=== PATIENT | female | born 1945 | race Caucasian/White ===

== ENCOUNTER 2022-04-24 14:00 | Outpatient (RCR) | payer MEDICARE, BC, SELFPAY | END 2022-07-24 12:29 | disposition home or self-care (01) | PROVIDERS: Visit Provider Orthopaedic Surgery | DX: M25.552 Pain in left hip (principal); R26.9 Unspecified abnormalities of gait and mobility; Z51.89 Encounter for other specified aftercare | CPT/HCPCS: 97110 ==

== ENCOUNTER 2022-11-28 10:45 | Outpatient (RCR) | payer MEDICARE, BC, SELFPAY | END 2023-04-12 23:59 | disposition home or self-care (01) | PROVIDERS: PCP Physician Assistant Medical; Visit Provider Orthopaedic Surgery | DX: M76.52 Patellar tendinitis, left knee (principal); Z51.89 Encounter for other specified aftercare | CPT/HCPCS: 97110; 97162 ==

== ENCOUNTER 2022-12-25 11:28 | Emergency (ER) | payer MEDICARE, BC, SELFPAY ==
[2022-12-25] VITALS (12 sets, daily range): BP systolic 91–131; BP diastolic 55–95; PULSE 48–53; RESP 16; TEMP 36.3; O2SAT 95–99
--- NOTE | 2022-12-25 12:06 | CRLHL7_ITS ---
For Patients: As a result of the Cures Act, medical imaging exams and procedure reports are released immediately into your electronic medical record. You may view this report before your referring provider. If you have questions, please contact your health care provider. Indication: Shortness of breath and chest pain Technique: Chest 2 views Comparison: Chest x-ray 06/24/2021 Findings/Impression: Cardiovascular and mediastinum: Normal heart size with mild aortic tortuosity. Lungs and pleural spaces: No pleural effusion or pneumothorax. No focal pulmonary consolidation. Bones and soft tissues: Old-appearing lower thoracic compression fracture. Dictated by Huan Magdaleno MD @ 12/25/2022 1:41:23 PM (Electronically Signed)
[2022-12-25 12:38] LABS: Basophils Absolute Auto 0.05 K/uL (0.00-0.30); Basophils Percent Auto 0.9 % (0.0-3.0); Eosinophils Absolute Auto 0.25 K/uL (0.00-0.50); Eosinophils Percent Auto 4.6 % (0.0-7.0); Hematocrit 42.4 % (33.0-51.0); Lymphocytes Absolute Auto 1.12 K/uL (0.90-2.90); Lymphocytes Percent Auto 20.8 % (20-44); Mean Corpuscular HGB Conc 33 gm/dL (32-36); Mean Corpuscular Hemoglobin 30 pg (26-34); Mean Corpuscular Volume 91 fL (80-100); Monocytes Percent Auto 11.7 % (0.0-11.0); Neutrophils Absolute Auto 3.34 K/uL (1.7-7.0); Platelet Count* 250 K/uL (140-440); Red Blood Count 4.67 m/uL (4.00-5.20); White Blood Count* 5.39 K/uL (4.50-11.00)
[2022-12-25 12:40] LABS: Slide Review Reflex No
--- NOTE | 2022-12-25 12:45 | ED.SOB ---
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 Denies any leg swelling, pleuritic pain, coughing, fevers chills, leg swelling, previous history of PE or DVT she has no personal history of any cardiac issues. She called the [facility] today, and they directed her to the ER. She thought this was possibly overkill. The shortness of breath is whenever she takes a deep breath in she notes a little bit of a catch, she denies an acid taste in the back of her throat, she does remember having this before. Treatment prior to arrival: none Related Data Home oxygen amount: none Home Medications Medication Instructions Recorded Confirmed atenolol 25 mg tablet 25 mg PO BID 12/25/22 12/25/22 atorvastatin 20 mg tablet 20 mg PO DAILY 12/25/22 12/25/22 celecoxib 200 mg capsule 200 mg PO DAILY 12/25/22 12/25/22 omeprazole 40 mg capsule,delayed 40 mg PO DAILY 12/25/22 12/25/22 release Allergies Allergy/AdvReac Type Severity Reaction Status Date / Time Penicillins Allergy Mild Verified 12/25/22 11:49 Review of Systems Status of ROS: Reports: 10 or more systems reviewed and unremarkable except as noted in History and below PFSH PFS Social History Smoking Status: Former smoker How often do you have a drink containing alcohol: 2-3 times a week AUDIT-C Alcohol total score: 3 Non-prescribed substance use: denies use Exam Narrative: Exam Narrative: Patient is seen in room 3 in no apparent distress she is pleasant and alert, speaking to me normally her pupils are equal round reactive to light, there is no scleral icterus redness, TMs are normal, her oropharynx is normal, neck is good carotid upstrokes bilaterally with absence of bruits, JVP is flat, chest has excellent air entry bilaterally, with no wheezing crackles noted there are no signs of respiratory distress, CV exam shows S1-S2 are normal there is no S3-S4 clicks murmurs or gallops, no palpable pain across the chest, abdomen is soft and slightly obese, there is no guarding, no organomegaly, no tenderness, bowel sounds are normal, her lower extremity show negative Homans sign bilaterally, no edema, normal pulses, normal sensation, neurologically intact moving upper and lower extremities normal, with normal power graded 5/5, skin reveals no rashes and she has normal pulses. Const: Vital Signs, click to edit/add: Vital Signs - 24 hr 12/25/22 11:41 12/25/22 12:36 12/25/22 13:00 Temperature 97.4 F L Pulse Rate 51 L 49 L Pulse Rate [Right Pulse Oximeter] 53 L Respiratory Rate 16 Blood Pressure Blood Pressure [Le ft Upper Arm] 125/74 Pulse Oximetry 97 97 96 Oxygen Delivery Me thod Room Air 12/25/22 13:03 12/25/22 13:07 12/25/22 13:30 Temperature Pulse Rate 50 L 48 L Pulse Rate [Right Pulse Oximeter] Respiratory Rate Blood Pressure 91/55 L Blood Pressure [Le ft Upper Arm] Pulse Oximetry 98 97 [facility] 13:31 12/25/22 14:00 12/25/22 14:01 Temperature Pulse Rate 49 L 50 L 53 L Pulse Rate [Right Pulse Oximeter] Respiratory Rate Blood Pressure 118/76 121/73 Blood Pressure [Le ft Upper Arm] Pulse Oximetry 95 99 99 Oxygen Delivery Ar thod 12/25/22 14:30 12/25/22 14:31 12/25/22 15:00 Temperature Pulse Rate 48 L 51 L 49 L Pulse Rate [Right Pulse Oximeter] Respiratory Rate Blood Pressure 131/95 H Blood Pressure [Le ft Upper Arm] Pulse Oximetry 97 98 98 Oxygen Delivery Me thod Documenting provider has reviewed patient's vital signs: yes Course Course Hospital Course: Sources laboratory work was normal, her EKG is reassuring, chest x-ray does not show any acute changes, D-dimer was normal, troponins x2 are normal. I think would be reasonable give her dose aspirin here before she leaves, and we will get the stress echo tomorrow, to ensure that she is good before her trip to [facility]. In the interim if she develops any problems overnight she will come back and be seen but I suspect that this will go a long way to helping her. Vital Signs Vital signs: Initial Vital Signs Temperature 97.4 F L 12/25/22 11:41 Temperature Source Temporal Artery Scan 12/25/22 11:41 Pulse Rate 53 L 12/25/22 11:41 Respiratory Rate 16 12/25/22 11:41 Blood Pressure 125/74 12/25/22 11:41 Blood Pressure Mean 91 12/25/22 11:41 Blood Pressure Position Sitting 12/25/22 11:41 Pulse Oximetry 97 12/25/22 11:41 Oxygen Delivery Method Room Air 12/25/22 11:41 Vital Signs Temperature 97.4 F L 12/25/22 11:41 Pulse Rate 53 L 12/25/22 11:41 Respiratory Rate 16 12/25/22 11:41 Blood Pressure 125/74 12/25/22 11:41 Pulse Oximetry 97 12/25/22 11:41 Oxygen Delivery Method Room Air 12/25/22 11:41 Temperature 97.4 F L 12/25/22 11:41 Pulse Rate 49 L 12/25/22 15:00 Respiratory Rate 16 12/25/22 11:41 Blood Pressure 131/95 H 12/25/22 14:31 Pulse Oximetry 98 12/25/22 15:00 Oxygen Delivery Method Room Air 12/25/22 11:41 MDM - SOB/Dyspnea MDM Narrative Medical decision making narrative: Life-threatening differential diagnosis includes occluded COPD exacerbation, pulmonary edema, acute coronary syndromes, pulmonary embolism, pneumonia, and pneumothorax. Other differential diagnosis considerations include asthma, bronchitis as well as other etiologies Medical Records Attestation: I reviewed the patient's medical records. Lab Data Attestation: I reviewed the patient's lab results. Labs: Lab Results 12/25/22 12/25/22 12/25/22 Range/Units 12:07 12:15 12:15 WBC 5.39 (4.50-11.00) K/uL RBC 4.67 (4.00-5.20) m/uL Hgb 14.0 (12.0-16.0) gm/dL Hct 42.4 (33.0-51.0) % MCV 91 (80-100) fL MCH 30 (26-34) pg MCHC 33 (32-36) gm/dL RDW Coeff of Natanael 13.0 (11.5-15.5) % Plt Count 250 (140-440) K/uL Neut % (Auto) 62.0 (42.0-72.0) % Lymph % (Auto) 20.8 (20-44) % [place] % (Auto) 11.7 H (0.0-11.0) % Eos % (Auto) 4.6 (0.0-7.0) % Baso % (Auto) 0.9 (0.0-3.0) % Neut # (Auto) 3.34 (1.7-7.0) K/uL Lymph # (Auto) 1.12 (0.90-2.90) K/uL [place] # (Auto) 0.60 (0.00-0.90) K/UL Eos # (Auto) 0.25 (0.00-0.50) K/uL Baso # (Auto) 0.05 (0.00-0.30) K/uL INR 1.00 (0.91-1.10) APTT 28 (23-33) Seconds D-Dimer Quant (PE/DVT) Cancelled 0.43 Sodium 140 (135-149) mmol/L Potassium 4.6 (3.6-5.1) mmol/L Chloride 109 (96-114) mmol/L Carbon Dioxide 26 (20-32) mmol/L BUN 17 (7-30) mg/dL Creatinine 0.7 (0.5-1.5) mg/dL Estimated Creat Clear 38.44 Estimated GFR 90 ml/min Glucose 103 (60-115) mg/dL Calcium 9.5 (8.4-10.6) mg/dL NT-Pro-B Natriuret Pep 375 pg/mL POC Troponin I 0.00 L (0.01-0.04) ng/ml 12/25/22 12/25/22 Range/Units 12:15 13:59 WBC (4.50-11.00) K/uL RBC (4.00-5.20) m/uL Hgb (12.0-16.0) gm/dL Hct (33.0-51.0) % MCV (80-100) fL MCH (26-34) pg MCHC (32-36) gm/dL RDW Coeff of Natanael (11.5-15.5) % Plt Count (140-440) K/uL Neut % (Auto) (42.0-72.0) % Lymph % (Auto) (20-44) % [place] % (Auto) (0.0-11.0) % Eos % (Auto) (0.0-7.0) % Baso % (Auto) (0.0-3.0) % Neut # (Auto) (1.7-7.0) K/uL Lymph # (Auto) (0.90-2.90) K/uL [place] # (Auto) (0.00-0.90) K/UL Eos # (Auto) (0.00-0.50) K/uL Baso # (Auto) (0.00-0.30) K/uL INR (0.91-1.10) APTT (23-33) Seconds D-Dimer Quant (PE/DVT) Sodium (135-149) mmol/L Potassium (3.6-5.1) mmol/L Chloride (96-114) mmol/L Carbon Dioxide (20-32) mmol/L BUN (7-30) mg/dL Creatinine (0.5-1.5) mg/dL Estimated Creat Clear Estimated GFR ml/min Glucose (60-115) mg/dL Calcium (8.4-10.6) mg/dL NT-Pro-B Natriuret Pep Cancelled pg/mL POC Troponin I 0.00 L (0.01-0.04) ng/ml Imaging Data Chest x-ray: Attestation: I have reviewed the pertinent imaging results. My impression: No acute changes Radiologist's impression: Patient: ALONSO DEMARCO Facility:?[facility] Patient ID:?[id number] Site Patient ID:?[id number]. Site :?[id number] Study:?XRay Chest 2 VIEW-12/25/2022 12:49:46 PM Ordering Physician:Olman Cowart Final Report: Indication: Shortness of breath and chest pain Technique: Chest 2 views Comparison: Chest x-ray 06/24/2021 Findings/Impression: Cardiovascular and mediastinum: Normal heart size with mild aortic tortuosity. Lungs and pleural spaces: No pleural effusion or pneumothorax. No focal pulmonary consolidation. Bones and soft tissues: Old-appearing lower thoracic compression fracture. Dictated by Huan Magdaleno MD @ 12/25/2022 1:41:23 PM (Electronic Signature) ECG Data Attestation: I personally reviewed and interpreted this ECG as follows: ECG interpretation date: 12/25/22 Prior ECG tracings: not available for review Interpretation: EKG shows sinus bradycardia, left bundle branch block, no acute ST wave changes. Discharge Plan Discharge Clinical Impression: Increasing shortness of breath, Chest pain Patient Disposition: Home, Self-Care Condition: Stable Instructions: Chest Pain (DC) Additional Instructions: Your Stress Test is scheduled for 12/26 with a 12:45pm arrival time. Please enter through the ER and check in at the front office director. If you have any questions or need to reschedule, please call [phone]. Your results will be faxed to Dr. Minor after your Stress Test is complete. I think we can discharge her home Alonso, I would suggest we give you 1 dose of aspirin 81 mg here, will see you tomorrow we will do the stress test, return here if any further issues or worsening acutely changes. Prescriptions: No Action celecoxib 200 mg capsule 200 mg PO DAILY atorvastatin 20 mg tablet 20 mg PO DAILY atenolol 25 mg tablet 25 mg PO BID omeprazole 40 mg capsule,delayed release(DR/EC) 40 mg PO DAILY Follow Up/Referrals: Kathleen Minor PAAmeliaC [Primary Care Provider] - Stand Alone Forms: [employer] Info Instructions
[2022-12-25 12:53] LABS: Chloride* 109 mmol/L (96-114); Partial Thromboplastin Time* 28 Seconds (23-33); Potassium* 4.6 mmol/L (3.6-5.1); Prothrombin Time 13.8 Seconds; Sodium* 140 mmol/L (135-149)
[2022-12-25 12:55] LABS: Creatinine* 0.7 mg/dL (0.5-1.5); Est. Creatinine Clearance* 38.44; Estimated Glomerular Filt Rate 90 ml/min
[2022-12-25 12:56] LABS: Blood Urea Nitrogen* 17 mg/dL (7-30); Calcium* 9.5 mg/dL (8.4-10.6); Carbon Dioxide* 26 mmol/L (20-32); D Dimer Quantitative* 0.43 ug/ml (0.00-0.50); Glucose* 103 mg/dL (60-115)
[2022-12-25 13:07] LABS: NT Pro B Type NatriureticPept* 375 pg/mL
[2022-12-25] MEDS: ASPIRIN 81 MG TAB.CHEW PO (15:25)
== END 2022-12-25 15:36 | disposition home or self-care (01) ==
PROVIDERS: Emergency Provider Family Medicine; PCP Physician Assistant Medical
DX: R06.02 Shortness of breath (principal); R07.9 Chest pain, unspecified
CPT/HCPCS: 36415; 71046; 80048; 83880; 84484; 85025; 85379; 85610; 85730; 93005; 99284; 99285; A9270

== ENCOUNTER 2022-12-26 12:28 | Outpatient (CLI) | payer MEDICARE, BC, SELFPAY ==
[2022-12-26 14:34] VITALS: BP 132/60; PULSE 72; RESP 16
[2022-12-26] MEDS: PERFLUTREN LIPID MICROSPHERES 2 ML VIAL IV (14:38)
== END 2022-12-26 14:15 | disposition home or self-care (01) ==
PROVIDERS: PCP Physician Assistant Medical; Visit Provider Family Medicine
DX: R06.02 Shortness of breath (principal); I44.7 Left bundle-branch block, unspecified
CPT/HCPCS: 93016; 93325; 93351; Q9957

== ENCOUNTER 2022-12-28 07:36 | Outpatient (CLI) | payer MEDICARE, BC, SELFPAY ==
--- NOTE | 2022-12-28 08:00 | CRLHL7_ITS ---
For Patients: As a result of the Century Cures Act, medical imaging exams and procedure reports are released immediately into your electronic medical record. You may view this report before your referring provider. If you have questions, please contact your health care provider. [facility] ??? [facility] MYOCARDIAL PERFUSION SCAN, 12/28/2022 CLINICAL HISTORY: 77-year-old female. Shortness of breath. Left bundle branch block. Elevated lipids. GERD. 169 pounds. TECHNIQUE: (Resting SPECT and stress gated SPECT with wall motion and ejection fraction) Stress: Pharmacologic ??? walking Lexiscan (0.4 mg IV) Dose (Stress/Rest): 32.2 mCi/8.29 mCi [id number] (IV) Comparison: None FINDINGS: There is good uptake of activity by the left ventricle. No left ventricular enlargement is noted. There is soft tissue attenuation. No other significant fixed or reversible defects are identified. The gated images demonstrate a normal left ventricular ejection fraction of approximately 65%. No regional wall motion abnormalities are identified. IMPRESSION: 1) There is no evidence of significant myocardial ischemia or infarction. 2) Normal left ventricular ejection fraction of approximately 65%. MIREYA MAN M.D. Diagnostic/Nuclear Medicine Radiologist [email or web address] Transcribed: 11:[address]/Dictated by: Mireya Man MD @ 12/28/2022 10:34:00 AM (Electronically Signed)
[2022-12-28] MEDS: REGADENOSON 0.4 MG/5 ML SYRINGE IVP (09:19)
[2022-12-28] MEDS: SODIUM CHLORIDE 0.9 % (FLUSH) 10 ML SYRINGE IVF (09:19)
[2022-12-28 09:21] VITALS: BP 147/56; PULSE 72; RESP 16
--- NOTE | 2022-12-28 09:36 | P.STN_ITS ---
Stress Test Note Date Date Seen: 12/28/22 Date of test: 12/28/22 Providers Primary care provider: Kathleen Minor Stress test physician: Supa May Stress Test Note Stress test ordered: Lexiscan Indication for test: chest pain, new LBBB Stress test medicine: Lexiscan Results discussion: Patient is a very nice lady presents for the above test after discussion the risks benefits side effects she would like to proceed, she had a stress echo done on Sunday, unfortunately we did not know that her left bundle branch block was new, it was read as negative for ischemia, but given its a new left bundle, I discussion was had with Cardiology, and they recommended that she get a Lexiscan. Pretest EKG shows the left bundle branch block, with a ventricular rate of 62, blood pressure 155/151. During this test she had absolutely no symptoms she was able to walk on the treadmill, no shortness of breath, dizziness, leg pain or any other symptoms, review of the tracing post test showed the left bundle branch block with no change, there is no other dysrhythmias noted. Impression: Negative electrographic Lexiscan in the setting of new left bundle branch block, test is not diagnostic for ischemia when this occurs, Follow up suggested: Await nuclear images, these will be jointly read by Cardiology nuclear Medicine, clinical correlation with this will be needed, patient left this testing fa cility in excellent condition, there were no complications. Results will be forwarded to her primary care physician listed above.
== END 2022-12-28 09:26 | disposition home or self-care (01) ==
PROVIDERS: PCP Physician Assistant Medical; Visit Provider Family Medicine
DX: R06.02 Shortness of breath (principal); I44.7 Left bundle-branch block, unspecified
CPT/HCPCS: 78452; 93016; 93017; A9500; J2785

== ENCOUNTER 2023-04-11 10:49 | Day surgery (SDC) | payer MEDICARE, BC, SELFPAY ==
[2023-04-11] MEDS: TETRACAINE 0.5% OPHTH 1 DROP EYE-LEFT ×2 (11:08→11:16)
[2023-04-11 11:12] VITALS: BP 145/69; PULSE 52; RESP 20; TEMP 36.3; O2SAT 98
[2023-04-11 11:14] VITALS: BMI 30.3
[2023-04-11] MEDS: KETOROLAC OPHTH 0.5% 1 DROP EYE-LEFT ×2 (11:14→11:22)
[2023-04-11] MEDS: SODIUM CHLORIDE 0.9 % (FLUSH) 10 ML SYRINGE IVF (11:31)
--- NOTE | 2023-04-11 11:49 | W.ANESCHARGE ---
Anesthesia Charges Start Date/Time Anesthesia Start Date: 04/11/23 Anesthesia Start Time: 12:10 Stop Date/Time Anesthesia Stop Date: 04/11/23 Anesthesia Stop Time: 12:43 Summary Extremes of Age - Over 70 or under 1: MDA
[2023-04-11] MEDS: TETRACAINE 0.5% OPHTH 2 DROP EYE-LEFT (12:13)
[2023-04-11] MEDS: BALANCED SALT IRRIG SOLN 15 ML EYE-LEFT (12:17)
--- NOTE | 2023-04-11 12:17 | W.ANESCHARGE ---
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
[2023-04-11 12:45] VITALS: BP 151/70; PULSE 52; RESP 20; TEMP 36.4; O2SAT 98
--- NOTE | 2023-04-11 12:49 | P.OPTPRC_ITS ---
Procedure Note Date of procedure: 04/11/23 Will [facility] bill your pro fee for this procedure?: Yes Procedure Description: SURGEON: Nolvia Hairston MD PREOPERATIVE DIAGNOSIS: Nuclear sclerotic cataract, left eye. POSTOPERATIVE DIAGNOSIS: Nuclear sclerotic cataract, left eye. NAME OF OPERATION: Phacoemulsification of cataract with posterior chamber intraocular lens implantation in the left eye. ANESTHESIA: Topical. ESTIMATED BLOOD LOSS: Less than 2 cc. COMPLICATIONS: None. PATHOLOGY SPECIMEN: None. INDICATIONS: See consult note for details. The risks, benefits and alternatives of the procedure were explained to the patient, who elected to proceed and sign ed informed consent to do so. PROCEDURE: The patient was brought to the pre-holding area where the left eye was identified as the operative eye. I placed my initials above this eye. The patient received eye drops consisting of 0.5% tetracaine, 1% tropicamide, 10% phenylephrine, and 0.5% ketorolac. The patient was then brought to the operating room where the left eye was again identified as the operative eye. The eye was prepped with Betadine and draped in the usual sterile ophthalmic fashion. A #15 super-sharp blade was used to create a paracentesis site. 1% non-preserved intracameral lidocaine was injected into the anterior chamber. Endocoat was injected into the anterior chamber. A 2.4 mm keratome was used to create a three-plane self-sealing incision 1 mm anterior to the temporal limbus. A cystotome was used to create an anterior capsular leaflet. The Utrata forceps were used to extend this to form a continuous curvilinear capsulorrhexis. Hydrodissection was performed. The cataract was removed with phacoemulsification using the [id number]-[id number] technique. The irrigation and aspiration tip was used to remove the remaining cortex. Healon was injected into the capsular bag. An MARY ELLEN ZCB00 intraocular lens of 16.0 diopters was injected into the capsular bag. The irrigation and aspiration tip was used to remove the remaining viscoelastic. Balanced salt solution on a cannula was used to hydrate the wound, and the wound was found to be watertight. The pupil was noted to be round. DISPOSITION: The patient was taken to the recovery room and discharged to home in stable condition. The patient was instructed to call me or go to the emergency department with any sudden change, including dramatic loss of vision, severe pain in the eye or eyebrow region, nausea, or vomiting. The patient will follow up in the clinic tomorrow morning.
== END 2023-04-11 13:11 | disposition home or self-care (01) ==
LOC: OR 10:49
PROVIDERS: PCP Physician Assistant Medical; Visit Provider Ophthalmology
PROC: (CPT 66984; principal; 2023-04-11 11:15)
DX: H25.12 Age-related nuclear cataract, left eye (principal)
CPT/HCPCS: 66984; 00142; 99100; A9270; J2250; J3010; V2632

== ENCOUNTER 2023-04-25 10:06 | Day surgery (SDC) | payer MEDICARE, BC, SELFPAY ==
[2023-04-25 10:34] VITALS: BP 153/77; PULSE 57; RESP 16; TEMP 36.6; O2SAT 95
[2023-04-25 10:35] VITALS: BMI 30.3
[2023-04-25] MEDS: TETRACAINE 0.5% OPHTH 1 DROP EYE-RIGHT ×2 (10:43→11:00)
[2023-04-25] MEDS: KETOROLAC OPHTH 0.5% 1 DROP EYE-RIGHT ×2 (10:43→11:00)
[2023-04-25] MEDS: SODIUM CHLORIDE 0.9 % (FLUSH) 10 ML SYRINGE IVF (10:59)
--- NOTE | 2023-04-25 11:11 | W.ANESCHARGE ---
Anesthesia Charges Start Date/Time Anesthesia Start Date: 04/25/23 Anesthesia Start Time: 11:30 Stop Date/Time Anesthesia Stop Date: 04/25/23 Anesthesia Stop Time: 12:06 Summary Extremes of Age - Over 70 or under 1: MDA
[2023-04-25] MEDS: TETRACAINE 0.5% OPHTH 2 DROP EYE-RIGHT (11:33)
[2023-04-25] MEDS: BALANCED SALT IRRIG SOLN 15 ML EYE-RIGHT (11:38)
--- NOTE | 2023-04-25 11:49 | SUR.PREOP ---
The eye drops brought by the patient (Ketorolac and Prednisolone) are examined and I have determined they are labeled by the patient's pharmacy for this patient as prescribed by the surgeon. The bottles are intact, recently obtained and appear to be correct. Jh BARTHOLOMEW
--- NOTE | 2023-04-25 12:06 | W.ANESCHARGE ---
Anesthesia Charges Start Date/Time Anesthesia Start Date: 04/25/23 Anesthesia Start Time: 11:30 Stop Date/Time Anesthesia Stop Date: 04/25/23 Anesthesia Stop Time: 12:06
[2023-04-25 12:23] VITALS: BP 135/59; PULSE 55; RESP 16; TEMP 36.4; O2SAT 97
--- NOTE | 2023-04-25 12:45 | W.PM.OPTPROC ---
Procedure Note Date of procedure: 04/25/23 Will [facility] bill your pro fee for this procedure?: Yes Procedure Description: SURGEON: Nolvia Hairston MD PREOPERATIVE DIAGNOSIS: Nuclear sclerotic cataract, right eye. POSTOPERATIVE DIAGNOSIS: Nuclear sclerotic cataract, right eye. NAME OF OPERATION: Phacoemulsification of cataract with posterior chamber intraocular lens implantation in the right eye. ANESTHESIA: Topical. ESTIMATED BLOOD LOSS: Less than 2 cc. COMPLICATIONS: None. PATHOLOGY SPECIMEN: None. INDICATIONS: See consult note for details. The risks, benefits and alternatives of the procedure were explained to the patient, who elected to proceed and signed informed consent to do so. PROCEDURE: The patient was brought to the pre-holding area where the right eye was identified as the operative eye. I placed my initials above this eye. The patient received eye drops consisting of 0.5% tetracaine, 1% tropicamide, 10% phenylephrine, and 0.5% ketorolac. The patient was then brought to the operating room where the right eye was again identified as the operative eye. The eye was prepped with Betadine and draped in the usual sterile ophthalmic fashion. A #15 super-sharp blade was used to create a paracentesis site. 1% non-preserved intracameral lidocaine was injected into the anterior chamber. Endocoat was injected into the anterior chamber. A 2.4 mm keratome was used to create a three-plane self-sealing incision 1 mm anterior to the temporal limbus. A cystotome was used to create an anterior capsular leaflet. The Utrata forceps were used to extend this to form a continuous curvilinear capsulorrhexis. Hydrodissection was performed. The cataract was removed with phacoemulsification using the pglfuz-poe-crncjzl technique. The irrigation and aspiration tip was used to remove the remaining cortex. Healon was injected into the capsular bag. An MARY ELLEN ZCB00 intraocular lens of 17.5 diopters was injected into the capsular bag. The irrigation and aspiration tip was used to remove the remaining viscoelastic. Balanced salt solution on a cannula was used to hydrate the wound, and the wound was found to be watertight. The pupil was noted to be round. DISPOSITION: The patient was taken to the recovery room and discharged to home in stable condition. The patient was instructed to call me or go to the emergency department with any sudden change, including dramatic loss of vision, severe pain in the eye or eyebrow region, nausea, or vomiting. The patient will follow up in the clinic tomorrow morning.
== END 2023-04-25 12:30 | disposition home or self-care (01) ==
PROVIDERS: PCP Physician Assistant Medical; Visit Provider Ophthalmology
PROC: (CPT 66984; principal; 2023-04-25 10:30)
DX: H25.11 Age-related nuclear cataract, right eye (principal)
CPT/HCPCS: 66984; 00142; 99100; A9270; J2250; J3010; V2632

== ENCOUNTER 2023-07-09 11:15 | Outpatient (RCR) | payer MEDICARE, BC, SELFPAY | END 2023-10-08 15:35 | disposition home or self-care (01) | PROVIDERS: PCP Physician Assistant Medical; Visit Provider Podiatrist | DX: M19.071 Primary osteoarthritis, right ankle and foot (principal); Z51.89 Encounter for other specified aftercare | CPT/HCPCS: 87086; 87186; 97110; 97140; 97162 ==

== ENCOUNTER 2024-09-25 09:15 | Outpatient (RCR) | payer MEDICARE, BC, SELFPAY | END 2025-01-23 23:59 | disposition home or self-care (01) | PROVIDERS: PCP Physician Assistant Medical; Visit Provider Physician Assistant Medical | DX: M54.2 Cervicalgia (principal); G89.29 Other chronic pain; M47.812 Spondylosis without myelopathy or radiculopathy, cervical region; Z51.89 Encounter for other specified aftercare | CPT/HCPCS: 97110; 97140; 97162 ==